=== PATIENT | female | born 1990 | race African-American/Black ===

== ENCOUNTER 2017-01-29 19:02 | Emergency (ER) | payer OTHER ==
[~2017-01-29] VITALS: Ht 152.4 cm; Wt 46.0 kg
[2017-01-29 19:05] VITALS: Ht 152.4 cm; Wt 46.0 kg
[2017-01-29] MEDS ORDERED: LIDOCAINE/MYLANTA 40 ML BTL PO STA (19:45)
[2017-01-29] MEDS ORDERED: ONDANSETRON (ODT) 4 MG TAB ODT STA (19:45)
[2017-01-29] MEDS ORDERED: FAMOTIDINE 20 MG TAB PO STA (19:45)
[2017-01-29 20:23] LABS: ADD SCAN DIFF NO
[2017-01-29 20:25] LABS: BASOPHILS % 0.4 % (0.0-2.0); EOSINOPHILS % 0.4 % (0.0-7.0); HEMATOCRIT 42.8 % (37.0-47.0); LYMPHOCYTES # 1.7 10^3/ul (0.8-2.9); LYMPHOCYTES % 19.4 % (15.0-51.0); MEAN CORPUSCULAR HEMOGLOBIN 30.2 pg (29.0-33.0); MEAN CORPUSCULAR HGB CONC 32.7 g/dl (32.0-37.0); MEAN CORPUSCULAR VOLUME 92.2 fl (82.0-101.0); MEAN PLATELET VOLUME 11.2 fl (7.4-10.4); MONOCYTE # 0.5 10^3/ul (0.3-0.9); MONOCYTES % 5.7 % (0.0-11.0); NEUTROPHIL # 6.6 10^3/ul (1.6-7.5); NEUTROPHILS % 73.8 % (39.0-77.0); PLATELET COUNT 212 10^3/UL (140-415); RED BLOOD COUNT 4.64 10^6/ul (4.20-5.40); RED CELL DISTRIBUTION WIDTH 12.9 % (11.5-14.5); WHITE BLOOD COUNT 8.9 10^3/ul (4.8-10.8)
[2017-01-29 20:32] LABS: ADD UMIC NO; UR BILIRUBIN (Dip) NEGATIVE (NEGATIVE); UR BLOOD (Dip) NEGATIVE (NEGATIVE); UR CLARITY CLEAR (CLEAR); UR COLOR LT. YELLOW (YELLOW); UR GLUCOSE (Dip) NEGATIVE (NEGATIVE); UR KETONES (Dip) NEGATIVE (NEGATIVE); UR LEUKOCYTE ESTERASE (Dip) NEGATIVE (NEGATIVE); UR NITRITE (Dip) NEGATIVE (NEGATIVE); UR TOTAL PROTEIN (Dip) NEGATIVE (NEGATIVE); UR UROBILINOGEN (Dip) 0.2 E.U./dL (0.1-1.0)
[2017-01-29 20:45] LABS: ALBUMIN/GLOBULIN RATIO 1.66; BILIRUBIN,INDIRECT 0.5 mg/dl (0-1.1); BILIRUBIN,TOTAL 0.5 mg/dl (0.2-1.3); CALCIUM 9.9 mg/dl (8.4-10.2); CREATININE 0.72 mg/dl (0.44-1.00)
--- NOTE | 2017-01-29 21:44 | RADRPT ---
PROCEDURE: Ultrasound Gallbladder. CLINICAL INDICATION: Abdominal pain. TECHNIQUE: Multiple sonographic images of the right upper quadrant of the abdomen were obtained. COMPARISON: None. FINDINGS: The visualized pancreas, aorta and IVC are unremarkable. The liver is homogeneous in echogenicity. There is no evidence of intrahepatic biliary duct dilatat ion. The gallbladder is not distended. There are no internal echoes to suggest the presence of cho lelithiasis. There is no gallbladder wall thickening or pericholecystic fluid. The common bile terry t measures approximately 3.6 mm. The main portal vein is patent with antegrade flow. The right kidney is normal in size and echogenicity measuring 9.0 x 3.8 x 5.4 cm (96 cc). There is no hydronephrosis or perinephric fluid. IMPRESSION: Unremarkable right upper quadrant abdominal ultrasound. RPTAT: HLST .Joselyn Grier MD, Date Time Electronically viewed and signed by .Joselyn Grier MD, MD on 01/29/2017 21:43 .T/
[2017-01-29] MEDS ORDERED: RANI150T9 PO (21:51)
--- NOTE | 2017-01-30 01:38 | ERD ---
ER Documentation Chief Complaint Date/Time DATE: 01/30/17 TIME: 01:36 Chief Complaint epigastric pain x 1 month, vomited 3x today HPI This patient is a 26-year-old female with past medical history of GERD presenting to the emergency department with complaints of midepigastric pain which is been ongoing intermittently for the past 8 months. Additionally the patient has had nausea. She also reports increased urinary frequency especially in the middle the night. Alleviating factors of her midepigastric pain include marijuana. Aggravating factors include spicy and greasy foods. She denies fevers, chills, or other symptoms. ROS All systems reviewed and are negative except as per history of present illness. Medications Home Meds Active Scripts Ranitidine Hcl* (Zantac*) 150 Mg Tablet, 150 MG PO BID Y for EPIGASTRIC PAIN, # 30 TAB Prov:RICKIE CALDERON PA-C 01/29/17 Allergies Allergies: Coded Allergies: No Known Allergy (Unverified , 01/29/17) PMhx/Soc Medical and Surgical Hx: pt denies Medical Hx, pt denies Surgical Hx Hx Alcohol Use: No Hx Substance Use: No Hx Tobacco Use: No Smoking Status: Never smoker Physical Exam Vitals Vital Signs Date Time Temp Pulse Resp B/P Pulse Ox O2 Delivery O2 Flow Rate FiO2 01/29/17 19:05 97.8 62 20 123/75 99 Physical Exam Const: Nontoxic, well-appearing female in no acute distress. Head: Atraumatic Eyes: Normal Conjunctiva ENT: Normal External Ears, Nose and Mouth. Neck: Full range of motion..~ No meningismus. Resp: Clear to auscultation bilaterally Cardio: Regular rate and rhythm, no murmurs Abd: Soft, mild midepigastric tenderness palpation but no rebound tenderness or guarding, there is no McBurney's point tenderness, negative Rene sign, non distended. Normal bowel sounds Skin: No petechiae or rashes Back: No midline or flank tenderness Ext: No cyanosis, or edema Neur: Awake and alert Psych: Normal Mood and Affect Result Diagram: 01/29/17201301/29/172013 Results 24 hrs Laboratory Tests Test 01/29/17 20:12 01/29/17 20:14 01/29/17 20:22 Urine Color LT. YELLOW Urine Clarity CLEAR Urine pH 6.0 Urine Specific [place] 1.020 Urine Ketones NEGATIVE Urine Nitrite NEGATIVE Urine Bilirubin NEGATIVE Urine Urobilinogen 0.2 E.U./dL Urine Leukocyte Esterase NEGATIVE Urine Hemoglobin NEGATIVE Urine Glucose NEGATIVE% Urine Total Protein NEGATIVE White Blood Count 8.910^3/ul Red Blood Count 4.6410^6/ul Hemoglobin 14.0g/dl Hematocrit 42.8% Mean Corpuscular Volume 92.2fl Mean Corpuscular Hemoglobin 30.2pg Mean Corpuscular Hemoglobin Concent 32.7g/dl Red Cell Distribution Width 12.9% Platelet Count 08829^3/UL Mean Platelet Volume 11.2fl Neutrophils % 73.8% Lymphocytes % 19.4% Monocytes % 5.7% Eosinophils % 0.4% Basophils % 0.4% Nucleated Red Blood Cells % 0.0/100WBC Neutrophils # 6.610^3/ul Lymphocytes # 1.710^3/ul Monocytes # 0.510^3/ul Eosinophils # 0.010^3/ul Basophils # 0.010^3/ul Nucleated Red Blood Cells # 0.010^3/ul Sodium Level 140mmol/L Potassium Level 4.0mmol/L Chloride Level 104mmol/L Carbon Dioxide Level 26mmol/L Anion Gap 14 Blood Urea Nitrogen 11mg/dl Creatinine 0.72mg/dl Glucose Level 91mg/dl Calcium Level 9.9mg/dl Total Bilirubin 0.5mg/dl Direct Bilirubin 0.00mg/dl Indirect Bilirubin 0.5mg/dl Aspartate Amino Transf (AST/SGOT) 26IU/L Alanine Aminotransferase (ALT/SGPT) 42IU/L Alkaline Phosphatase 70IU/L Total Protein 8.0g/dl Albumin 5.0g/dl Globulin 3.00g/dl Albumin/Globulin Ratio 1.66 Lipase 73U/L Bedside Glucose 86mg/dL Current Medications Medications (Trade) Dose Ordered Sig/Tiffanie Route PRN Reason Start Time Stop Time Status Last Admin Dose Admin Famotidine (Pepcid) 20 mg ONCE STAT PO 01/29/17 19:45 01/29/17 19:50 DC Miscellaneous Medication (Gi Cocktail (2)) 40 ml ONCE STAT PO 01/29/17 19:45 01/29/17 19:50 DC Ondansetron HCl (Zofran Odt) 4 mg ONCE STAT ODT 01/29/17 19:45 01/29/17 19:50 [place] [id number] Radiology Main Line: [phone] DIAGNOSTIC IMAGING REPORT Patient: TY GALLARDO : 1990 Age: 26 Sex: F MR #: [id number] DOS: 01/29/171944 Ordering MD: RICKIE CALDERON PA-C Location: [facility] Room/Bed: PROCEDURE: Ultrasound Gallbladder. CLINICAL INDICATION: Abdominal pain. TECHNIQUE: Multiple sonographic images of the right upper quadrant of the abdomen were obtained. COMPARISON: None. FINDINGS: The visualized pancreas, aorta and IVC are unremarkable. The liver is homogeneous in echogenicity. There is no evidence of intrahepatic biliary duct dilatation. The gallbladder is not distended. There are no internal echoes to suggest the presence of cholelithiasis. There is no gallbladder wall thickening or pericholecystic fluid. The common bile duct measures approximately 3.6 mm. The main portal vein is patent with antegrade flow. The right kidney is normal in size and echogenicity measuring 9.0 x 3.8 x 5.4 cm (96 cc). There is no hydronephrosis or perinephric fluid. IMPRESSION: Unremarkable right upper quadrant abdominal ultrasound. RPTAT: HLST .Joselyn Grier MD, MD Date Time Electronically viewed and signed by .Joselyn Grier MD, MD on 01/29/2017 21:43 .T/ CC: RICKIE CALDERON PA-C Procedures/[facility] EMERGENCY DEPARTMENT COURSE / MEDICAL DECISION MAKING: This is a 26-year-old female who comes to the emergency room secondary to complaints of midepigastric pain, increased urinary frequency, nausea. Urinalysis is negative for infection, hematuria, or proteinuria. The patient declined all medication in the department. On reevaluation though, she was feeling improved. Lab results reviewed and showed no significant acute abnormalities. Radiology: Right upper quadrant ultrasound IMPRESSION: Unremarkable right upper quadrant abdominal ultrasound. The primary diagnosis is epigastric pain of unclear etiology. I have low suspicion for acute abdomen, septicemia, or other emergent conditions at this time. Discharge: I have discussed the lab results and diagnostic findings with the patient and answered any questions or concerns. The patient was discharged with a prescription for ranitidine. The patient was advised to followup with their PMD in 1-2 days and to return to the Emergency Department if there are any new or worsening symptoms. The patient understood and agreed with the diagnosis, treatment and plan. The patient is stable for discharge at this time. Departure Diagnosis: Primary Impression: Epigastric pain Condition: Fair Patient Instructions: Gerd (Adult) Referrals: [facility] YOU HAVE RECEIVED A MEDICAL SCREENING EXAM AND THE RESULTS INDICATE THAT YOU DO NOT HAVE A CONDITION THAT REQUIRES URGENT TREATMENT IN THE EMERGENCY DEPARTMENT. FURTHER EVALUATION AND TREATMENT OF YOUR CONDITION CAN WAIT UNTIL YOU ARE SEEN IN YOUR DOCTORS OFFICE WITHIN THE NEXT 1-2 DAYS. IT IS YOUR RESPONSIBILITY TO MAKE AN APPOINTMENT FOR FOLOW-UP CARE. IF YOU HAVE A PRIMARY DOCTOR --you should call your primary doctor and schedule an appointment IF YOU DO NOT HAVE A PRIMARY DOCTOR YOU CAN CALL OUR PHYSICIAN REFERRAL HOTLINE AT IF YOU CAN NOT AFFORD TO SEE A PHYSICIAN YOU CAN CHOSE FROM THE FOLLOWING [facility] [address] [facility]. [facility] [address] [facility] [facility] [place] [address] [facility] [facility] [address] [facility]. [facility] [address] [facility]. [facility]. [address] Additional Instructions: Follow up with your PCP within the next 1-3 days for a repeat evaluation and a possible referral to a specialist, if required. Return the the emergency department immediately if symptoms worsen or change. If you have any questions regarding medications, ask your pharmacist or us before you leave. If any adverse reactions, occur while taking your medications, discontinue the treatment and return to the emergency department immediately. If any new or worsening symptoms, uncontrolled fevers, or other unexplained symptoms occur, return to the emergency department immediately. Take your medications as directed, and complete the entire course of treatment. RICKIE CALDERON PA-C Jan 30, 2017 01:38
== END 2017-01-29 22:05 | disposition home or self-care (01) ==
LOC: FTE 19:02
DX: R10.13 Epigastric pain (principal)
CPT/HCPCS: 36415; 76705; 80053; 81003; 82962; 83690; 85025; Z7502; Z7610